=== PATIENT | male | born 1995 | race Caucasian/White ===

== ENCOUNTER 2021-03-13 00:55 | Inpatient (IN) | payer OTHER ==
[~2021-03-13] VITALS: Ht 180.3 cm; Wt 73.4 kg
[2021-03-13] MEDS ORDERED: ONDANSETRON 2MG/ML, 2ML IVPush ONE (01:30)
[2021-03-13] MEDS ORDERED: ACETAMINOPHEN 500 MG TABLET PO ONE (01:30)
[2021-03-13] MEDS ORDERED: SODIUM CHLORIDE 0.9% 1,000ML IVBOLUS ONE (01:30)
[2021-03-13 01:43] LABS: BASOPHILS % (AUTO) 0 % (0-1); EOSINOPHILS % (AUTO) 0 % (1-7); LYMPHOCYTES % (AUTO) 9 % (22-44); MEAN CORPUSCULAR HEMOGLOBIN 30.1 pg (27.5-34.5); MEAN CORPUSCULAR HGB CONC 34.5 g/dL (33.2-36.2); MEAN PLATELET VOLUME 8.5 fL (7.4-10.4); MONOCYTES % (AUTO) 7 % (2-9); NEUTROPHILS % (AUTO) 85 % (42-75); PLATELET COUNT 191 x10^3/uL (130-400); RED BLOOD COUNT 5.47 x10^6/uL (4.38-5.82); RED CELL DISTRIBUTION WIDTH 13.5 % (9.4-14.8)
[2021-03-13 01:52] LABS: ALANINE AMINOTRANSFERASE 37 U/L (12-78); ALBUMIN 3.6 g/dL (3.4-5.0); ANION GAP 11 mmol/L (5-15); CALCIUM 8.6 mg/dL (8.5-10.1); CHLORIDE 100 mmol/L (98-107); CREATININE 0.86 mg/dL (0.7-1.3)
[2021-03-13 01:55] LABS: ALKALINE PHOSPHATASE 53 U/L (45-117); BILIRUBIN,TOTAL 0.5 mg/dL (0.2-1.0); TOTAL PROTEIN 7.8 g/dL (6.4-8.2)
[2021-03-13] MEDS ORDERED: ONDANSETRON 2MG/ML, 2ML ONE (03:13)
[2021-03-13] MEDS ORDERED: ACETAMINOPHEN 500 MG TABLET ONE (03:13)
--- NOTE | 2021-03-13 03:25 | NUR ---
PATIENT 86% ON RA PLACED ON 2L NC. JUNE CHANDLER AWARE.
[2021-03-13] MEDS ORDERED: DEXAMETHASONE 4 MG TABLET PO ONE (03:30)
[2021-03-13] MEDS ORDERED: ALBUTEROL/IPRATROPIUM 2.5MG/0.5MG, 3 ML NPPB ONE (03:30)
[2021-03-13] MEDS ORDERED: DEXAMETHASONE 4 MG TABLET ONE (03:32)
[2021-03-13] MEDS ORDERED: ALBUTEROL/IPRATROPIUM 2.5MG/0.5MG, 3 ML ONE (03:33)
--- NOTE | 2021-03-13 04:22 | NUR ---
AT BEDSIDE FOR EVAL.
--- NOTE | 2021-03-13 05:16 | NUR ---
REPORT GIVEN TO OJ BANEGAS
[2021-03-13] MEDS ORDERED: SODIUM CHLORIDE FLUSH 10ML SYR IVF PRN (05:30)
[2021-03-13] MEDS ORDERED: ACETAMINOPHEN 325 MG TABLET PO PRN ×3 (05:30→13:00)
[2021-03-13] MEDS ORDERED: IBUPROFEN 600 MG TABLET PO PRN (05:30)
[2021-03-13 05:39] VITALS: BP 105/64
[2021-03-13 07:50] VITALS: BP 106/79
[2021-03-13] MEDS ORDERED: BISACODYL 10 MG SUPP PR PRN (13:00)
[2021-03-13] MEDS ORDERED: DOCUSATE 100 MG CAPSULE PO PRN (13:00)
[2021-03-13] MEDS ORDERED: MELATONIN 5 MG TABLET PO PRN (13:00)
[2021-03-13] MEDS ORDERED: PHARMACY MAY ADJ FOR RENAL FX MC PRN (13:00)
[2021-03-13] MEDS ORDERED: HYDROcodone/APAP 5/325 TABLET PO PRN (13:00)
[2021-03-13] MEDS ORDERED: POLYETHYLENE GLYCOL 17 GM PACKET PO PRN (13:00)
[2021-03-13] MEDS ORDERED: ONDANSETRON ODT 4 MG PO PRN (13:00)
[2021-03-13] MEDS ORDERED: REMDESIVIR 200 MG in SODIUM CHLORIDE 0.9% 250 ML IVPB ONE (14:00)
[2021-03-13 14:37] VITALS: BP 105/78
[2021-03-13] MEDS: ZINC SULFATE 220 MG CAPSULE PO SCH (14:44)
[2021-03-13] MEDS: CHOLECALCIFEROL 5,000u TAB PO SCH (14:44)
[2021-03-13] MEDS: ENOXAPARIN 40 MG/0.4 ML SQ SCH (14:44)
[2021-03-13 14:56] VITALS: BP 112/70
[2021-03-13 17:11] VITALS: BP 108/80
[2021-03-13] MEDS: CEFTRIAXONE 1,000 MG in DEXTROSE 5% 50 ML IVPB SCH (18:21)
[2021-03-13 19:54] VITALS: BP 105/73
[2021-03-13] MEDS: DOXYCYCLINE 100MG TABLET PO SCH (20:03)
[2021-03-13] MEDS: MELATONIN 5 MG TABLET PO SCH (20:03)
[2021-03-13] MEDS: ASCORBIC ACID 500 MG TABLET PO SCH (20:03)
[2021-03-13] MEDS: SODIUM CHLORIDE 0.9% 1,000 ML IV SCH (20:47)
[2021-03-14] MEDS: ONDANSETRON 2MG/ML, 2ML IVPush PRN ×2 (01:13→10:16)
[2021-03-14 01:32] VITALS: BP 107/74
[2021-03-14] MEDS ORDERED: BENZONATATE 100 MG CAPSULE PO PRN (02:00)
[2021-03-14] MEDS ORDERED: BENZONATATE 100 MG CAPSULE PO SCH (02:00)
[2021-03-14] MEDS ORDERED: CALCIUM CARBONATE 500 MG TAB.CHEW PO ONE (02:20)
[2021-03-14 06:51] LABS: BASOPHILS % (AUTO) 0 % (0-1); EOSINOPHILS % (AUTO) 0 % (1-7); LYMPHOCYTES % (AUTO) 13 % (22-44); MEAN CORPUSCULAR HEMOGLOBIN 30.5 pg (27.5-34.5); MEAN CORPUSCULAR HGB CONC 34.6 g/dL (33.2-36.2); MEAN PLATELET VOLUME 9.5 fL (7.4-10.4); MONOCYTES % (AUTO) 5 % (2-9); NEUTROPHILS % (AUTO) 82 % (42-75); PLATELET COUNT 207 x10^3/uL (130-400); RED BLOOD COUNT 5.12 x10^6/uL (4.38-5.82); RED CELL DISTRIBUTION WIDTH 13.4 % (9.4-14.8)
[2021-03-14 07:01] LABS: CHLORIDE 103 mmol/L (98-107)
[2021-03-14 07:14] LABS: ALANINE AMINOTRANSFERASE 43 U/L (12-78); ALKALINE PHOSPHATASE 45 U/L (45-117); ANION GAP 11 mmol/L (5-15); BILIRUBIN,TOTAL 0.5 mg/dL (0.2-1.0); CALCIUM 8.6 mg/dL (8.5-10.1); CREATININE 0.75 mg/dL (0.7-1.3); TOTAL PROTEIN 6.8 g/dL (6.4-8.2)
[2021-03-14] MEDS: PANTOPRAZOLE 40MG TABLET PO SCH (07:33)
[2021-03-14] MEDS: ZINC SULFATE 220 MG CAPSULE PO SCH (07:33)
[2021-03-14] MEDS: DEXAMETHASONE 4 MG TABLET PO SCH (07:33)
[2021-03-14] MEDS: CHOLECALCIFEROL 5,000u TAB PO SCH (07:33)
[2021-03-14] MEDS: DOXYCYCLINE 100MG TABLET PO SCH ×2 (07:33→20:33)
[2021-03-14] MEDS: ASCORBIC ACID 500 MG TABLET PO SCH ×2 (07:33→20:32)
[2021-03-14 07:47] VITALS: BP 105/71
[2021-03-14] MEDS: SODIUM CHLORIDE 0.9% 1,000 ML IV SCH ×2 (09:50→20:38)
[2021-03-14] MEDS ORDERED: POTASSIUM CHLORIDE 20 MEQ TAB.ER.PRT PO ONE (10:00)
[2021-03-14 10:58] LABS: INTERNATIONAL NORMALIZED RATIO 1.12 (0.93-1.1); PROTHROMBIN TIME 11.9 Seconds (9.6-11.5)
[2021-03-14 11:06] LABS: D-DIMER 1.69 ug/mlFEU (0.00-0.52)
[2021-03-14 12:00] VITALS: BP 114/75
[2021-03-14] MEDS: ENOXAPARIN 40 MG/0.4 ML SQ SCH (13:07)
[2021-03-14] MEDS: CEFTRIAXONE 1,000 MG in DEXTROSE 5% 50 ML IVPB SCH (13:07)
[2021-03-14] MEDS: REMDESIVIR 100 MG in SODIUM CHLORIDE 0.9% 250 ML IVPB SCH (14:10)
[2021-03-14 20:13] VITALS: BP 108/69
[2021-03-14] MEDS: MELATONIN 5 MG TABLET PO SCH (20:38)
[2021-03-15 01:44] VITALS: BP 97/65
[2021-03-15] MEDS: GUAIFENESIN 100 MG/5 ML, 10ML UDC PO PRN (01:50)
[2021-03-15 05:36] LABS: BASOPHILS % (AUTO) 0 % (0-1); EOSINOPHILS % (AUTO) 0 % (1-7); LYMPHOCYTES % (AUTO) 15 % (22-44); MEAN CORPUSCULAR HEMOGLOBIN 30.4 pg (27.5-34.5); MEAN CORPUSCULAR HGB CONC 33.8 g/dL (33.2-36.2); MEAN PLATELET VOLUME 8.4 fL (7.4-10.4); MONOCYTES % (AUTO) 13 % (2-9); NEUTROPHILS % (AUTO) 72 % (42-75); PLATELET COUNT 230 x10^3/uL (130-400); RED BLOOD COUNT 4.74 x10^6/uL (4.38-5.82); RED CELL DISTRIBUTION WIDTH 13.9 % (9.4-14.8)
[2021-03-15 06:00] LABS: C-REACTIVE PROTEIN, QUANT 4.1 mg/dL (0.02-0.49)
[2021-03-15 06:07] LABS: ALANINE AMINOTRANSFERASE 43 U/L (12-78); ALBUMIN 2.4 g/dL (3.4-5.0); ALKALINE PHOSPHATASE 39 U/L (45-117); ANION GAP 6 mmol/L (5-15); BILIRUBIN,TOTAL 0.3 mg/dL (0.2-1.0); CALCIUM 8.5 mg/dL (8.5-10.1); CHLORIDE 108 mmol/L (98-107); CREATININE 0.69 mg/dL (0.7-1.3)
[2021-03-15 08:30] VITALS: BP 97/61
[2021-03-15] MEDS: ZINC SULFATE 220 MG CAPSULE PO SCH (10:07)
[2021-03-15] MEDS: DEXAMETHASONE 4 MG TABLET PO SCH (10:07)
[2021-03-15] MEDS: CHOLECALCIFEROL 5,000u TAB PO SCH (10:07)
[2021-03-15] MEDS: ASCORBIC ACID 500 MG TABLET PO SCH ×2 (10:07→21:04)
[2021-03-15] MEDS: DOXYCYCLINE 100MG TABLET PO SCH ×2 (10:07→21:00)
[2021-03-15] MEDS: PANTOPRAZOLE 40MG TABLET PO SCH (10:08)
[2021-03-15] MEDS: SODIUM CHLORIDE 0.9% 1,000 ML IV SCH ×2 (11:44→21:07)
[2021-03-15] MEDS: ENOXAPARIN 40 MG/0.4 ML SQ SCH (13:12)
[2021-03-15] MEDS: CEFTRIAXONE 1,000 MG in DEXTROSE 5% 50 ML IVPB SCH (13:12)
[2021-03-15 13:36] VITALS: BP 96/93
[2021-03-15] MEDS: REMDESIVIR 100 MG in SODIUM CHLORIDE 0.9% 250 ML IVPB SCH (14:54)
[2021-03-15 19:26] VITALS: BP 101/69
[2021-03-15] MEDS: MELATONIN 5 MG TABLET PO SCH (21:00)
[2021-03-16 01:28] VITALS: BP 101/65
[2021-03-16 05:37] LABS: D-DIMER 1.44 ug/mlFEU (0.00-0.52); INTERNATIONAL NORMALIZED RATIO 1.09 (0.93-1.1); PROTHROMBIN TIME 11.6 Seconds (9.6-11.5)
[2021-03-16 05:39] LABS: CHLORIDE 111 mmol/L (98-107)
[2021-03-16 05:46] LABS: ALANINE AMINOTRANSFERASE 40 U/L (12-78); ALBUMIN 2.4 g/dL (3.4-5.0); ALKALINE PHOSPHATASE 38 U/L (45-117); ANION GAP 5 mmol/L (5-15); BILIRUBIN,TOTAL 0.5 mg/dL (0.2-1.0); CALCIUM 8.4 mg/dL (8.5-10.1); CREATININE 0.57 mg/dL (0.7-1.3); TOTAL PROTEIN 5.7 g/dL (6.4-8.2)
[2021-03-16 07:53] VITALS: BP 112/69
[2021-03-16] MEDS: PANTOPRAZOLE 40MG TABLET PO SCH (08:26)
[2021-03-16] MEDS: ASCORBIC ACID 500 MG TABLET PO SCH ×2 (08:26→20:47)
[2021-03-16] MEDS: DOXYCYCLINE 100MG TABLET PO SCH ×2 (08:26→20:47)
[2021-03-16] MEDS: GUAIFENESIN 100 MG/5 ML, 10ML UDC PO PRN (08:26)
[2021-03-16] MEDS: CHOLECALCIFEROL 5,000u TAB PO SCH (08:27)
[2021-03-16] MEDS: ZINC SULFATE 220 MG CAPSULE PO SCH (08:27)
[2021-03-16] MEDS: DEXAMETHASONE 4 MG TABLET PO SCH (08:27)
[2021-03-16] MEDS ORDERED: GUAIFENESIN/DM 100-10MG, 5ML UDC PO PRN (10:30)
[2021-03-16 13:01] VITALS: BP 122/85
[2021-03-16] MEDS: CEFTRIAXONE 1,000 MG in DEXTROSE 5% 50 ML IVPB SCH (13:22)
[2021-03-16] MEDS: ENOXAPARIN 40 MG/0.4 ML SQ SCH (13:22)
[2021-03-16] MEDS: REMDESIVIR 100 MG in SODIUM CHLORIDE 0.9% 250 ML IVPB SCH (15:28)
[2021-03-16 19:48] VITALS: BP 112/75
[2021-03-16] MEDS: MELATONIN 5 MG TABLET PO SCH (21:00)
[2021-03-17 00:56] VITALS: BP 123/71
[2021-03-17 06:13] LABS: CHLORIDE 109 mmol/L (98-107)
[2021-03-17 06:27] LABS: ALANINE AMINOTRANSFERASE 44 U/L (12-78); ALBUMIN 2.4 g/dL (3.4-5.0); ALKALINE PHOSPHATASE 40 U/L (45-117); ANION GAP 5 mmol/L (5-15); BILIRUBIN,TOTAL 0.5 mg/dL (0.2-1.0); CALCIUM 8.6 mg/dL (8.5-10.1); CREATININE 0.75 mg/dL (0.7-1.3); TOTAL PROTEIN 5.6 g/dL (6.4-8.2)
[2021-03-17] MEDS: CHOLECALCIFEROL 5,000u TAB PO SCH (07:41)
[2021-03-17] MEDS: DEXAMETHASONE 4 MG TABLET PO SCH (07:41)
[2021-03-17] MEDS: DOXYCYCLINE 100MG TABLET PO SCH (07:42)
[2021-03-17] MEDS: PANTOPRAZOLE 40MG TABLET PO SCH (07:42)
[2021-03-17] MEDS: ASCORBIC ACID 500 MG TABLET PO SCH (07:42)
[2021-03-17] MEDS: ZINC SULFATE 220 MG CAPSULE PO SCH (07:42)
[2021-03-17 10:57] VITALS: BP 109/68
[2021-03-17 12:03] VITALS: BP 113/68
[2021-03-17] MEDS: ENOXAPARIN 40 MG/0.4 ML SQ SCH (13:08)
[2021-03-17] MEDS: CEFTRIAXONE 1,000 MG in DEXTROSE 5% 50 ML IVPB SCH (13:08)
[2021-03-17] MEDS ORDERED: AMOX1TAB64 PO (13:57)
[2021-03-17] MEDS ORDERED: DEXA4TAB66 PO (13:57)
[2021-03-17] MEDS ORDERED: ZINC220C8 PO (13:57)
[2021-03-17] MEDS ORDERED: PANT40TA6 PO (13:57)
[2021-03-17] MEDS ORDERED: ASCO500T9 PO (13:57)
[2021-03-17] MEDS ORDERED: ACET325T26 PO (13:57)
[2021-03-17] MEDS ORDERED: MELA5TAB14 PO (13:57)
[2021-03-17] MEDS: REMDESIVIR 100 MG in SODIUM CHLORIDE 0.9% 250 ML IVPB SCH (15:00)
[2021-03-17] MEDS ORDERED: CHOL500045 PO (16:13)
== END 2021-03-17 17:59 | disposition home health service (06) | DRG 177 ==
LOC: ED 05:29 → EDIP 05:35 → 3N 05:37
PROVIDERS: ADMIT Family Medicine; ATTEND Internal Medicine
PROC: XW033E5 Introduction of Remdesivir Anti-infective into Peripheral Vein, Percutaneous Approach, New Technology Group 5 (ICD-10-PCS; principal; 2021-03-13)
DX: U07.1 COVID-19 (principal); J96.01 Acute respiratory failure with hypoxia; J12.82 Pneumonia due to coronavirus disease 2019; E87.1 Hypo-osmolality and hyponatremia
CPT/HCPCS: 36415; 36600; 71045; 71275; 80053; 82728; 82803; 83615; 83735; 84100; 85025; 85379; 85384; 85610; 86140; 96374; 96375; G0378; J0696; J1650; J2405; Q0162; J7030; J7050